=== PATIENT | female | born 1980 | race Caucasian/White ===

== ENCOUNTER 2018-08-26 16:37 | Emergency (ER) | payer MEDICAID ==
[~2018-08-26 16:37] MED LIST: IBUP200C8 PO; LISI-167 PO; PENI500T PO
--- NOTE | 2018-08-26 17:30 | NUR ---
PT HERE FOR ORTHOSTATIC DIZZY SPELLS. PT REPORTS WHEN CHANGING HER POSITION SHE GETS VERY DIZZY AND HAS A HINSON. PT REPORTS ITS GETTING DIFFICULT TO DO HER JOB DUE TO THIS. PT DENIES HX BUT HAS HAD HINSON BEFORE. PT CONNECTED TO MONITORS AND CALL LIGHT IN REACH. ORTHOSTATICS COMPLETED.
--- NOTE | 2018-08-26 17:35 | NUR ---
NOTIFIED OF ORTHOSTATICS.
[2018-08-26 17:51] LABS: BASOPHILS # (AUTO) 0.03 x10^3/uL (0-0.1); BASOPHILS % (AUTO) 0 % (0-1); EOSINOPHILS # (AUTO) 0.08 x10^3/uL (0-0.4); EOSINOPHILS % (AUTO) 1 % (1-7); LYMPHOCYTES # (AUTO) 3.36 x10^3/uL (1-3.4); LYMPHOCYTES % (AUTO) 34 % (22-44); MD NO; MEAN CORPUSCULAR HEMOGLOBIN 29.4 pg (27.0-34.8); MEAN CORPUSCULAR HGB CONC 33.4 g/dL (32.4-35.8); MEAN CORPUSCULAR VOLUME 87.8 fL (80-100); MONOCYTES # (AUTO) 0.59 x10^3/uL (0.2-0.8); MONOCYTES % (AUTO) 6 % (2-9); NEUTROPHILS # (AUTO) 5.92 x10^3/uL (1.8-6.8); NEUTROPHILS % (AUTO) 59 % (42-75); PLATELET COUNT 271 x10^3/uL (130-400); RED BLOOD COUNT 4.62 x10^6/uL (3.82-5.3); RED CELL DISTRIBUTION WIDTH 13.4 % (9.6-15.2)
[2018-08-26 17:59] LABS: INTERNATIONAL NORMALIZED RATIO 0.99 (0.93-1.1); PROTHROMBIN TIME 10.4 Seconds (9.6-11.5)
[2018-08-26 18:00] LABS: ALANINE AMINOTRANSFERASE 18 U/L (12-78); ALBUMIN 3.9 g/dL (3.4-5.0); ANION GAP 6 mmol/L (5-15); CALCIUM 8.6 mg/dL (8.5-10.1); CHLORIDE 110 mmol/L (98-107)
[2018-08-26 18:05] LABS: ALKALINE PHOSPHATASE 66 U/L (45-117); BILIRUBIN,TOTAL 0.3 mg/dL (0.2-1.0); TOTAL PROTEIN 7.5 g/dL (6.4-8.2); TROPONIN I < 0.015 ng/mL (0.000-0.045)
[2018-08-26 18:28] VITALS: BP 116/85
--- NOTE | 2018-08-26 18:29 | NUR ---
TASK RN: Pt resting comfortably in [facility] with fall precautions in place, NAD, call light within reach.
--- NOTE | 2018-08-26 18:55 | NUR ---
Patient/Caregiver given discharge instructions and they have confirmed that they understand the instructions. Patient ambulatory with steady gait.
== END 2018-08-26 19:02 | disposition home or self-care (01) ==
LOC: ED 19:00
DX: M94.0 Chondrocostal junction syndrome [Tietze] (principal); R42 Dizziness and giddiness
CPT/HCPCS: 36415; 71046; 80053; 84484; 85025; 85610; 85730; 93005; 99284

== ENCOUNTER 2019-12-29 17:16 | Emergency (ER) | payer MEDICAID ==
[~2019-12-29] VITALS: Ht 149.9 cm; Wt 68.2 kg
[2019-12-29 19:36] LABS: BASOPHILS % (AUTO) 0 % (0-1); EOSINOPHILS % (AUTO) 1 % (1-7); LYMPHOCYTES % (AUTO) 15 % (22-44); MEAN CORPUSCULAR HEMOGLOBIN 28.1 pg (27.0-34.8); MEAN CORPUSCULAR HGB CONC 33.3 g/dL (32.4-35.8); MEAN PLATELET VOLUME 8.9 fL (7.4-10.4); MONOCYTES % (AUTO) 9 % (2-9); NEUTROPHILS % (AUTO) 75 % (42-75); PLATELET COUNT 224 x10^3/uL (130-400); RED BLOOD COUNT 5.17 x10^6/uL (3.82-5.3); RED CELL DISTRIBUTION WIDTH 13.5 % (9.6-15.2)
[2019-12-29 19:38] LABS: MD NO
[2019-12-29 19:54] LABS: ALBUMIN 3.5 g/dL (3.4-5.0); ANION GAP 7 mmol/L (5-15); CHLORIDE 106 mmol/L (98-107)
[2019-12-29 19:55] LABS: CREATININE 0.74 mg/dL (0.55-1.02)
[2019-12-29 20:28] VITALS: BP 113/83
[2019-12-29] MEDS ORDERED: CEFDINIR 300 MG CAPSULE ONE (20:35)
[2019-12-29] MEDS ORDERED: AZITHROMYCIN 250 MG TABLET ONE (20:36)
[2019-12-29] MEDS ORDERED: CEFDINIR 300 MG CAPSULE PO ONE (21:00)
[2019-12-29] MEDS ORDERED: AZITHROMYCIN 500 MG TABLET PO ONE (21:00)
== END 2019-12-29 20:48 | disposition home or self-care (01) ==
LOC: ED 18:57
DX: J18.1 Lobar pneumonia, unspecified organism (principal); R06.02 Shortness of breath; R07.89 Other chest pain; Z20.828 Contact with and (suspected) exposure to other viral communicable diseases; R05 Cough; R00.0 Tachycardia, unspecified
CPT/HCPCS: 36415; 71045; 80048; 82040; 85025; 87635; 93005; 99285